=== PATIENT | female | born 1990 | race American Indian/Alaskan Native ===

== ENCOUNTER 2021-12-22 07:07 | Day surgery (SDC) | payer BC ==
[~2021-12-22 07:07] MED LIST: SODIUM CHLORIDE 0.9% 1000 ML 1,000 ML IV SCH
--- NOTE | 2021-12-22 08:03 | Anesthesia Consultation ---
Anesthesia Consult and Med Hx Date of service: 12/22/21 - Airway Anesthetic Teeth Evaluation: Good ROM Head & Neck: Adequate Mental/Hyoid Distance: Adequate Mallampati Class: Class I Intubation Access Assessment: Probably Good - Pulmonary Exam CTA: No - Cardiac Exam Cardiac Exam: RRR - Pulmonary Hx Smoking: No Hx Asthma: No Hx Respiratory Symptoms: No SOB: No COPD: No Home Oxygen Therapy: No Hx Pneumonia: No Hx Sleep Apnea: No - Cardiovascular System Hx Coronary Artery Disease: No Hx Heart Attack/AMI: No Hx Angina: No Hx Percutaneous Transluminal Coronary Angioplasty (PTCA): No Hx Cardia Arrhythmia: No Hx Pacemaker: No Hx Internal Defibrillator: No Hx Heart Murmur: No Hx Peripheral Vascular Disease: No - Central Nervous System Hx Neuromuscular Disorder: No Hx Seizures: No CVA: No Hx Back Pain: No Hx Psychiatric Problems: No - Gastrointestinal Hx Ulcer: No Hx Gastroesophageal Reflux Disease: No - Endocrine Hx Renal Disease: No Hx End Stage Renal Disease: No Hx Cirrhosis: No Hx Liver Disease: No Hx Insulin Dependent Diabetes: No Hx Non-Insulin Dependent Diabetes: No Hx Thyroid Disease: No Hx Hypothyroidism: No Hx Hyperthyroidism: No - Hematic Hx Anemia: No Hx Sickle Cell Disease: No - Other Systems Hx Alcohol Use: No Hx Substance Use: No Hx Cancer: No Hx Obesity: No
--- NOTE | 2021-12-22 08:06 | Anesthesia Day of Surgery ---
Anesthesia Day of Surgery - Day of Surgery Patient Examined: Yes Patient H&P Reviewed: Yes Patient is NPO: Yes Beta Blockers: No Cardiac Clearance: No (n/a) Pulmonary Clearance: No (n/a) Shilo's Test: Negative
[2021-12-22] MEDS ORDERED: propofoL 200 MG/20 ML VIAL IV ONE ×2 (08:42)
--- NOTE | 2021-12-22 09:21 | Procedure Note ---
Date of procedure: 12/22/21 Pre-op diagnosis: Hematochezia/ Abdominal Pain Post-op diagnosis: other (Hematochezia secondry Minor, Internal and External Hemorrhoids, not significat enough for Banding/ R/O Microscopic colitis/ R/O Ileitis/ No Colon Polyps or diverticular disease was noted) Procedure: Colonoscopy with biopsy Anesthesia: [facility] [place] Surgeon: NAT SPEARS Estimated blood loss: minimal Pathology: list Specimen disposition: to lab Condition: stable Disposition: same day (Avoid aspirin and NSAID for 5 days; otherwise resume previous medication and F/U in 1 to 2 weeks ([phone]). Advice patient to use OTC Hemorrhoidal medication.)
--- NOTE | 2021-12-22 09:47 | Operative Report ---
DATE OF SURGERY: 12/22/2021 PROCEDURE PERFORMED: Colonoscopy with biopsy. INDICATIONS: A 31-year-old otherwise healthy -[place] female who has occasionally been complaining of hematochezia and some abdominal pain. Colonoscopy was done to assess for the problem. DESCRIPTION OF PROCEDURE: Procedure was done after getting informed consent with MAC anesthesia. Initial rectal exam did not show but just some minor external hemorrhoids. A rectal examination was otherwise unremarkable. The instrument was passed through the rectum onto the cecum, which was identified with ileocecal valve and appendiceal orifice. Visualization was good. Cecum was also visualized on the retroverted view. The terminal ileum was intubated, showed normal mucosa. Biopsy was done to rule out for possible ileitis. Cecum, ascending colon, transverse colon, descending colon, and sigmoid showed normal mucosa. Random biopsies were done to rule out for possible microscopic colitis and the rectum showed some minor internal hemorrhoids, not significant enough for banding, which may have contributed to the hematochezia. ASSESSMENT: Hematochezia secondary to minor internal hemorrhoid as well as external hemorrhoids, not significant enough for banding, rule out microscopic colitis, rule out ileitis. No colon polyps or diverticular disease noted. The prep was good. PLAN: The patient will be asked to avoid aspirin and aspirin-related products for the next few days, otherwise resume previous medication. Treat the patient with [id number] hemorrhoidal medication and follow up in the office in 1-2 weeks' time. Procedure was done in the GI lab with assistance of the GI lab team, which included the GI nurse, cardiac, printer technician and with assistance of anesthesia. TID: [id number] RECEIPT: [id number] ZHEN/RACHEL
[2021-12-22] MEDS ORDERED: NEOMY 3.5 MG/BACIT 400 UNITS/POLY B 5000 UNITS/GM OINT PACKET TP ONE (12:54)
[2021-12-22 15:29] VITALS: BP 106/66
--- NOTE | 2021-12-22 17:32 | Post Anesthesia Evaluation ---
- Post Anesthesia Evaluation Patient Participated: Yes Airway Patent: Yes Stable Respiratory Function: Yes Nausea/Vomiting: No Temp > 96.8F: Yes Pain Manageable: Yes Adequeate Hydration: Yes Anesthesia Complications: No Block Receding Appropriately: Not Applicable Patient on Ventilator: No
== END 2021-12-22 09:45 | disposition home or self-care (01) ==
LOC: GIO 07:07
DX: K92.1 Melena (principal); R10.9 Unspecified abdominal pain; K52.89 Other specified noninfective gastroenteritis and colitis; K92.2 Gastrointestinal hemorrhage, unspecified; K64.8 Other hemorrhoids; K64.4 Residual hemorrhoidal skin tags; K63.89 Other specified diseases of intestine
CPT/HCPCS: 45380; 81025; 88305; J2704; J7030